=== PATIENT | male | born 1975 | race African-American/Black ===

== ENCOUNTER → 2022-08-24 14:23 | Outpatient (BNVA) | payer OTHER, SELFPAY | PROVIDERS: PCP Internal Medicine; Visit Provider Urology | DX: N52.9 Male erectile dysfunction, unspecified (principal); R68.82 Decreased libido; R35.1 Nocturia | CPT/HCPCS: 51798; 99202 ==

== ENCOUNTER 2022-09-07 11:40 | Outpatient (REF) | payer OTHER, SELFPAY ==
--- NOTE | ~2022-09-07 | US_ITS ---
EXAMINATION: US PELVIS LIMITED (BLADDER) CLINICAL INFORMATION: Poor urinary stream. COMPARISON: None available. TECHNIQUE: Real-time imaging of the bladder. FINDINGS: Well distended and normal. Bilateral ureteral jets are demonstrated. Prevoid bladder volume is 152.0 mL. Postvoid bladder volume is 12.6 mL. The prostate volume is 33.8 mL. US/US bladder IMPRESSION: Unremarkable sonographic imaging of the bladder.
== END 2022-09-07 11:41 | disposition home or self-care (01) ==
LOC: HO.US 11:40
PROVIDERS: PCP Internal Medicine; Visit Provider Urology
DX: R39.12 Poor urinary stream (principal); R35.1 Nocturia
CPT/HCPCS: 76857